=== PATIENT | male | born 1980 | race Caucasian/White ===

== ENCOUNTER 2022-09-27 01:41 | Emergency (ER) | payer OTHER ==
[2022-09-27 02:05] VITALS: BP 124/83; PULSE 82; RESP 18; TEMP 98.4; BMI 26.1
== END 2022-09-27 05:37 | disposition home or self-care (01) ==
LOC: JER 01:41
DX: K08.89 Other specified disorders of teeth and supporting structures (principal)
CPT/HCPCS: 99283-25